=== PATIENT | female | born 1965 | race Caucasian/White ===

== ENCOUNTER 2016-05-08 13:18 | Outpatient (CLI) ==
[2015-08-23 09:33] VITALS: BMI 35.2
[2016-05-08 17:04] LABS: FLU INTERNAL QC INTERNAL QC VALID; RAPID FLU A NEGATIVE (NEGATIVE); RAPID FLU B NEGATIVE (NEGATIVE)
== END 2016-05-08 13:19 | disposition home or self-care (01) ==
LOC: LAB 13:18
PROVIDERS: ATTEND Nurse Practitioner Family
DX: R05 Cough (principal); R50.9 Fever, unspecified; J02.9 Acute pharyngitis, unspecified
CPT/HCPCS: 87651; 87804; 87880

== ENCOUNTER 2016-05-15 12:16 | Outpatient (CLI) ==
[2015-08-23 09:33] VITALS: BMI 35.2
--- NOTE | 2016-05-15 13:02 | DI ---
Examination: Two radiographic image of the chest. Comparison: CT scan of the chest performed 02/10/2015. Reason for study: Cough. FINDINGS: No pneumothorax, pleural effusion, or focal consolidation. Operative changes are seen af ter midline sternotomy. Impression: No acute cardiopulmonary findings.
== END 2016-05-15 12:17 | disposition home or self-care (01) ==
LOC: RAD 12:16
PROVIDERS: ATTEND Nurse Practitioner Family
DX: R05 Cough (principal); R50.9 Fever, unspecified; J01.90 Acute sinusitis, unspecified

== ENCOUNTER 2016-06-23 13:35 | Outpatient (CLI) ==
[2015-08-23 09:33] VITALS: BMI 35.2
--- NOTE | 2016-06-23 14:18 | DI ---
EXAM: Two views of the chest. History: Cough. Comparison: Chest radiograph 05/15/2016 Findings: Heart size is within normal limits. Sternotomy wires. No focal consolidation. No appre ciable pleural fluid and no pneumothorax. No acute osseous abnormalities. Impression: No acute cardiopulmonary process.
== END 2016-06-23 13:36 | disposition home or self-care (01) ==
LOC: RAD 13:35
PROVIDERS: ATTEND Physician Assistant
DX: R05 Cough (principal)

== ENCOUNTER 2016-08-03 07:26 | Outpatient (CLI) ==
[2015-08-23 09:33] VITALS: BMI 35.2
== END 2016-08-03 07:27 | disposition home or self-care (01) ==
LOC: LAB 07:26
PROVIDERS: ATTEND Nurse Practitioner Family
DX: E03.9 Hypothyroidism, unspecified (principal); Z00.00 Encounter for general adult medical examination without abnormal findings
CPT/HCPCS: 36415; 84443

== ENCOUNTER 2016-12-27 06:41 | Outpatient (CLI) | payer OTHER ==
[2015-08-23 09:33] VITALS: BMI 35.2
== END 2016-12-27 06:42 | disposition home or self-care (01) ==
LOC: LAB 06:41
PROVIDERS: ATTEND Nurse Practitioner Family
DX: E03.9 Hypothyroidism, unspecified (principal)
CPT/HCPCS: 36415; 84443

== ENCOUNTER 2017-10-08 15:17 | Outpatient (CLI) ==
[2017-02-02 12:23] VITALS: BMI 35.5
== END 2017-10-08 15:18 | disposition home or self-care (01) ==
LOC: LAB 15:17
PROVIDERS: ATTEND Internal Medicine Cardiovascular Disease
DX: I47.1 Supraventricular tachycardia (principal)
CPT/HCPCS: 36415; 80048; 85025